=== PATIENT | female | born 1930 | race Hispanic/Latino ===

== ENCOUNTER 2018-06-24 14:37 | Inpatient (IN) | payer MEDICARE, BC ==
[2018-06-24 14:51] VITALS: BMI 22.6
[2018-06-24] MEDS ORDERED: cefTRIAXone 1 gm 1 GM/100 ML BAG IVPB STA (14:52)
--- NOTE | 2018-06-24 14:56 | ED PDOC ---
Arrival/HPI - General Time Seen by Provider: 06/24/18 14:39 Historian: Patient - History of Present Illness Narrative History of Present Illness (Text): 06/24/18 14:52 An 88 year old female presents to the emergency room with a complaint of sudden onset weakness, chills, feeling warm, and inability to walk. Patient states that her symptoms began today at home. She notes that she does not smoke/drink. The patient denies fevers, headache, dizziness, sore throat, cough, chest pain, shortness of breath, dyspnea on exertion, abdominal pain, nausea, vomiting, diarrhea, neck/back pain, urinary/bowel changes or any other complaint. PMD: Dr. Kilgore Time/Duration: Other (Today) Symptom Onset: Sudden Symptom Course: Unchanged Activities at Onset: Rest, Light Context: Home Associated Symptoms (Text): 06/24/18 15:54 Severe generalized weakness and fatigue along with feeling feverish with chills and inability to ambulate beginning today. Past Medical History - Provider Review Nursing Documentation Reviewed: Yes Family/Social History - Physician Review Nursing Documentation Reviewed: Yes Family/Social History: No Known Family HX Smoking Status: Never Smoked Hx Alcohol Use: No Hx Substance Use: No Allergies/Home Meds Allergies/Adverse Reactions: Allergies No Known Allergies Allergy (Verified 06/24/18 14:38) Home Medications: Home Meds Medication Instructions Recorded Confirmed Cholecalciferol [Vitamin D 1000 IU] 50,000 iu PO Q2W 06/24/18 06/24/18 Furosemide [Lasix] 20 mg PO DAILY 06/24/18 06/24/18 Lisinopril [Zestril] 10 mg PO DAILY 06/24/18 06/24/18 Metoprolol Tartrate [Lopressor] 50 mg PO DAILY 06/24/18 06/24/18 Oxybutynin [Oxybutynin Chloride] 5 mg PO DAILY 06/24/18 06/24/18 [id number] CD [Cardizem CD] 180 mg PO DAILY 06/24/18 06/24/18 Review of Systems - Physician Review All systems were reviewed & negative as marked: Yes - Review of Systems Constitutional: Fatigue. absent: Fevers ENT: absent: Sore Throat Respiratory: absent: SOB, Cough Cardiovascular: absent: Chest Pain, MENDOZA Gastrointestinal: absent: Abdominal Pain, Stool Changes, Diarrhea, Nausea, Vomiting Genitourinary Female: absent: Urine Output Changes Musculoskeletal: absent: Back Pain, Neck Pain Neurological: absent: Headache, Dizziness Endocrine: Diaphoresis (Feeling warm and experienced chills) Physical Exam Vital Signs Temp Pulse Resp BP Pulse Ox 06/24/18 15:56 84 20 124/58 L 96 06/24/18 14:37 101.7 F H 93 H 20 154/109 H 97 Temperature: Febrile Blood Pressure: Hypertensive Pulse: Regular Respiratory Rate: Normal Appearance: Positive for: Well-Appearing, Non-Toxic, Comfortable, Uncomfortable Pain Distress: None Mental Status: Positive for: Alert and Oriented X 3 - Systems Exam Head: Present: Atraumatic, Normocephalic Pupils: Present: PERRL Extroacular Muscles: Present: EOMI Conjunctiva: Present: Normal Ears: Present: NORMAL TM, Normal Canal. No: Erythema Mouth: Present: Moist Mucous Membranes Pharnyx: No: ERYTHEMA, EXUDATE, TONSILS ENLARGED Neck: Present: Normal Range of Motion Respiratory/Chest: Present: Clear to Auscultation, Good Air Exchange, Other ( Large area of cellulitis, warm, swollen, erythematous, tender: right breast.). No: Respiratory Distress, Accessory Muscle Use Cardiovascular: Present: Regular Rate and Rhythm, Irregular Rhythm (Irregulary irregular.). No: Murmurs Abdomen: No: Tenderness, Distention, Peritoneal Signs Breast/Axillary: Present: Discoloration, Erythema, Swelling, Symmetrical, Tender to Palpation. No: Fluctuance, Masses, Nipple Discharge Back: Present: Normal Inspection Upper Extremity: Present: Normal Inspection. No: Cyanosis, Edema Lower Extremity: Present: Normal Inspection. No: Edema Neurological: Present: GCS=15, CN II-XII Intact, Speech Normal, Motor Func Grossly Intact Skin: Present: Warm, Dry, Normal Color, Other (Severe cellulitis of the entire right breast with no palpable abscess). No: Rashes Psychiatric: Present: Alert, Oriented x 3, Normal Insight, Normal Concentration Medical Decision Making ED Course and Treatment: 06/24/18 14:59 Impression: An 88 year old female presents to the emergency room for further evaluation after feeling warm, weak and experiencing chills and diaphoresis. Plan: --EKG -- Chest X-ray -- Labs -- Blood/ Urine Culture -- Urinalysis -- Rocephin -- Reassess and disposition Progress Notes: Chest X-ray Dictator : Maynor Gamboa MD Report Date : 06/24/2018 15:15:54 IMPRESSION: No active disease 06/24/18 15:56 EKG shows atrial fibrillation rate approximately 90 with Q waves inferiorly and no acute ST or T-wave changes. 06/24/18 15:58: Case discussed in detail with Dr. Kilgore who accepts patient to his service. - Lab Interpretations Lab Results: 06/24/18 15:00 06/24/18 15:00 Lab Results 06/24/18 15:00: Sodium 139, Chloride 106, Potassium 4.4, Carbon Dioxide 21, Anion Gap 16, BUN 38 H, Creatinine 1.5 H, Est GFR ( Amer) 40, Est GFR ( Non-Af Amer) 33, Random Glucose 113 H, Calcium 8.8, Phosphorus 2.7, Magnesium 2.0, Total Bilirubin 2.1 H, AST 40 H, ALT 40, Alkaline Phosphatase 107, Troponin I < 0.01, Total Protein 6.7, Albumin 3.8, Globulin 2.9, Albumin/ Globulin Ratio 1.3 06/24/18 15:00: pO2 178 H, VBG pH 7.47 H, VBG pCO2 31.0 L, VBG HCO3 22.6, VBG Total CO2 23.6, VBG O2 Sat (Calc) 100.2 H, VBG Base Excess -0.2 L, VBG Potassium 4.5, Sodium 138.0, Chloride 108.0 H, Glucose 116 H, Lactate 2.0, FiO2 21.0, Venous Blood Potassium 4.5 06/24/18 15:00: PT 16.4 H, INR 1.43 H, APTT 29.5 06/24/18 15:00: WBC 11.3 H, RBC 3.54, Hgb 12.5, Hct 35.4 L, MCV 100.0, MCH 35.3 H, MCHC 35.3, RDW 13.2, Plt Count 113 L, MPV 9.9, Gran % 81.4 H, Lymph % (Auto) 7.5 L, [place] % (Auto) 10.6 H, Eos % (Auto) 0.3 L, Baso % (Auto) 0.2, Gran # 9.18 H, Lymph # (Auto) 0.9 L, [place] # (Auto) 1.2 H, Eos # (Auto) 0.0, Baso # (Auto) 0.02 I have reviewed the lab results: Yes - RAD Interpretation Radiology Orders: 06/24/18 14:52 CHEST PORTABLE [RAD] Stat - EKG Interpretation Interpreted by ED Physician: Yes Type: 12 lead EKG - Medication Orders Current Medication Orders: Discontinued Medications Acetaminophen (Tylenol 325mg Tab) 975 mg PO STAT STA Stop: 06/24/18 15:19 Last Admin: 06/24/18 15:43 Dose: 975 mg MAR Pain/Vitals Document 06/24/18 15:43 SRE (Rec: 06/24/18 15:43 SRE [id number]) Pain Reassessment Is This A Pain ReAssessment? Yes Sleep Is patient sleeping during reassessment? No Presence of Pain Presence of Pain Yes Pain Scale Used Pain Scale Used Numeric Ceftriaxone Sodium (Rocephin 1 Gram Ivpb) 1 gm in 100 mls @ 200 mls/hr IVPB STAT STA PRN Reason: Protocol Stop: 06/24/18 15:21 Last Admin: 06/24/18 15:30 Dose: 200 mls/hr eMAR Start Stop Document 06/24/18 15:30 SRE (Rec: 06/24/18 15:43 SRE [id number]) Intravenous Solution Start Date 06/24/18 Start Time 15:30 End Date 06/24/18 End time 16:30 Total Infusion Time 60 Sodium Chloride (Sodium Chloride 0.9%) 500 mls @ 500 mls/hr IV ONCE ONE Stop: 06/24/18 16:45 Last Admin: 06/24/18 15:55 Dose: 500 mls/hr eMAR Start Stop Document 06/24/18 15:55 SRE (Rec: 06/24/18 15:56 SRE [id number]) Intravenous Solution Start Date 06/24/18 Start Time 15:55 End Date 06/24/18 End time 16:30 Total Infusion Time 35 - Scribe Statement The provider has reviewed the documentation as recorded by the Sumiibkapil Bryson Provider Scribe Attestation: All medical record entries made by the Scribe were at my direction and personally dictated by me. I have reviewed the chart and agree that the record accurately reflects my personal performance of the history, physical exam, medical decision making, and the department course for this patient. I have also personally directed, reviewed, and agree with the discharge instructions and disposition. Disposition/Present on Arrival - Present on Arrival Any Indicators Present on Arrival: No History of DVT/PE: No History of Uncontrolled Diabetes: No Urinary Catheter: No History of Decub. Ulcer: No - Disposition Have Diagnosis and Disposition been Completed?: Yes Diagnosis: Cellulitis, Fever, Hypertension, Dehydration, Atrial fibrillation, Altered mental status Disposition: HOSPITALIZED Disposition Time: 15:46 Patient Plan: Admission Patient Problems: Current Active Problems Problem Status Onset Altered mental status Acute Atrial fibrillation Acute Cellulitis Acute Dehydration Acute Fever Acute Hypertension Acute Condition: FAIR
--- NOTE | 2018-06-24 15:17 | RAD ---
Date of service: 06/24/2018 HISTORY: Sepsis Patient COMPARISON: No prior. FINDINGS: LUNGS: No active pulmonary disease. PLEURA: No significant pleural effusion identified, no pneumothorax apparent. CARDIOVASCULAR: Normal. OSSEOUS STRUCTURES: No significant abnormalities. VISUALIZED UPPER ABDOMEN: Normal. OTHER FINDINGS: None. IMPRESSION: No active disease.
[2018-06-24 15:27] LABS: BASO # 0.02 K/mm3 (0.0-2.0); BASO % 0.2 % (0.0-3.0); EOS % 0.3 % (1.5-5.0); GRAN # 9.18 (1.4-6.5); GRAN % 81.4 % (50.0-68.0); HEMOGLOBIN 12.5 g/dL (12.0-16.0); LYMPH # 0.9 (1.2-3.4); LYMPH % 7.5 % (22.0-35.0); MEAN CORPUSCULAR HEMOGLOBIN 35.3 pg (25.0-35.0); MEAN CORPUSCULAR HGB CONC 35.3 g/dl (31.0-37.0); MEAN PLATELET VOLUME 9.9 fl (7.0-11.0); MONO # 1.2 (0.1-0.6); MONO % 10.6 % (1.0-6.0); RBC 3.54 10^6/uL (3.5-6.1); RED CELL DISTRIBUTION WIDTH 13.2 % (11.5-14.5); VENOUS BLOOD GAS BASE EXCESS -0.2 mmol/L (0.0-2.0); VENOUS BLOOD GAS PO2 178 mm/Hg (30-55); VENOUS BLOOD PH 7.47 (7.32-7.43); WHITE BLOOD COUNT 11.3 10^3/ul (4.5-11.0)
[2018-06-24 15:35] LABS: INR 1.43 (0.93-1.08); PARTIAL THROMBOPLASTIN TIME 29.5 Seconds (25.1-36.5); PROTHROMBIN TIME 16.4 SECONDS (9.4-12.5)
[2018-06-24 15:37] LABS: ALB/GLOB RATIO 1.3 (1.1-1.8); ALBUMIN 3.8 g/dL (3.0-4.8); ALT/SGPT 40 U/L (7-56); AST/SGOT 40 U/L (14-36); BLOOD UREA NITROGEN 38 mg/dL (7-21); CALCIUM 8.8 mg/dL (8.4-10.5); GFR AFRICAN-AMERICAN 40; GFR NON-AFRICAN AMERICAN 33
[2018-06-24] MEDS ORDERED: Sodium Chloride 0.9% 500 ML IV ONE (15:46)
[2018-06-24 15:48] LABS: TROPONIN I < 0.01 ng/mL
[2018-06-24 15:50] LABS: PH,URINE 6.5 (4.7-8.0); URINE APPEARANCE CLEAR (CLEAR); URINE BILIRUBIN NEGATIVE (NEGATIVE); URINE BLOOD SMALL (NEGATIVE); URINE COLOR YELLOW (YELLOW); URINE GLUCOSE (UA) NEGATIVE (NEGATIVE); URINE LEUKOCYTE ESTERASE NEGATIVE Leu/uL (NEGATIVE); URINE PROTEIN 30 mg/dL (<30 mg/dL)
[2018-06-24 16:11] LABS: URINE RBC 0 - 2 /hpf (0-2); URINE WBC NEGATIVE /hpf (0-6)
--- NOTE | 2018-06-24 17:27 | CARD ---
APPROVED REPORT Date of service: 06/24/2018 EKG Measurement Heart [id number] <Conclusion> Atrial fibrillation Inferior infarct, age undetermined Abnormal ECG
[2018-06-24] MEDS: Sodium Chloride 0.9% 1,000 ML IV SCH (18:51)
[2018-06-24 19:12] LABS: VENOUS BLOOD GAS BASE EXCESS -1.1 mmol/L (0.0-2.0); VENOUS BLOOD GAS PO2 85 mm/Hg (30-55)
[2018-06-24] MEDS ORDERED: Pneumococcal 23-Valent Vaccine IM ONE (21:03)
[2018-06-24] MEDS: Linezolid 600 mg in D5W 300 ml 600 MG/300 ML BAG IVPB SCH (23:50)
--- NOTE | 2018-06-25 04:21 | HP ---
I am seeing the patient in the emergency room. Patient is admitted with the diagnosis of cellulitis of the right chest wall involving the breast area. HISTORY OF PRESENT ILLNESS: Patient is seen in the emergency room. She presented with fever. She also had general weakness and unstable gait. Patient has had also mild cough and congestion. PAST MEDICAL HISTORY: Patient's past history is significant. She has history of hypertension. Patient has a history of atherosclerotic heart disease, atrial fibrillation. Patient has history of congestive heart failure, osteoarthritis, osteoporosis. She also has history of overactive bladder with frequency of micturition. Patient has history of cancer of the right breast, diagnosed and treated in the past. 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 ALLERGIES: SHE IS NOT ALLERGIC TO ANY MEDICATIONS AT THIS TIME. PHYSICAL EXAMINATION: GENERAL: Patient is examined while the patient is in the emergency room. She is lying flat. She does not seem to be in any acute pain, but on palpation she has pain in the right chest. Patient's color, she is flushed and she seemed to be warm on touch. VITAL SIGNS: Pulse is 84, blood pressure 124/58, respirations are 20, O2 saturation 96% on room air, patient's temperature was 101.7 in the emergency room. HEENT: Patient's head appears to be normal, but she has a scar from the previous surgery. She has had cerebral hemorrhage and she had the finding in the past. NECK: The thyroid is not enlarged. JVP is flat. Carotid pulses are present. HEART: Normal sinus rhythm, sinus tachycardia. No murmurs. No rubs. ABDOMEN: Soft. Liver and spleen not palpable. No masses. CENTRAL NERVOUS SYSTEM: Patient is conscious, moves all four limbs and no focal neurological deficits noted at this time. LUNGS: Clear. Trachea is central. Breath sounds are vesicular bilaterally and they are diminished bilaterally. EXTREMITIES: Patient's examination of the legs appears to be normal as before, and no acute changes are noted in the leg. SKIN: Patient's chest examination on the skin shows evidence of cellulitis or erysipelas-like reaction of the chest wall, which is red and not clearly marginated. The patient possibly has a Streptococcal infection in the skin area. LABORATORY DATA: The patient's blood cultures were done in the emergency room. ASSESSMENT AND PLAN: She was put on Rocephin intravenously and Tylenol given every four hours p.r.n. Patient's medications consist of, patient is on Cardizem 180 mg daily. Patient is on metoprolol 50 mg daily, lisinopril 10 mg daily, Lasix 20 mg daily. Patient is on oxybutynin for overactive bladder, 5 mg once a day. Patient is on vitamin D, and 2 g sodium heart-healthy diet. Patient's clinical condition is acute. Overall prognosis is guarded. We will treat the patient with antibiotics, have a consultation with Infectious Disease service, and we will closely evaluate her right breast area because of the patient's past history of the cancer of the breast. Might need to do mammogram, but the patient is tender at this time, and we will consider doing the CAT scan of the chest to evaluate the breast area and the chest. Patient is in the emergency room, will be placed on regular medical bed upstairs in the floor. César Lemon MD
[2018-06-25] MEDS: Sodium Chloride 0.9% 1,000 ML IV SCH ×2 (07:09→20:25)
[2018-06-25 07:27] LABS: BASO # 0.02 K/mm3 (0.0-2.0); BASO % 0.2 % (0.0-3.0); EOS # 0.1 (0.0-0.7); EOS % 1.2 % (1.5-5.0); GRAN # 6.18 (1.4-6.5); GRAN % 76.9 % (50.0-68.0); LYMPH # 0.8 (1.2-3.4); LYMPH % 10.4 % (22.0-35.0); MEAN CELL VOLUME 100.3 fl (80.0-105.0); MEAN CORPUSCULAR HEMOGLOBIN 34.7 pg (25.0-35.0); MEAN CORPUSCULAR HGB CONC 34.6 g/dl (31.0-37.0); MEAN PLATELET VOLUME 9.7 fl (7.0-11.0); MONO # 0.9 (0.1-0.6); MONO % 11.3 % (1.0-6.0); RBC 3.46 10^6/uL (3.5-6.1); RED CELL DISTRIBUTION WIDTH 13.4 % (11.5-14.5); WHITE BLOOD COUNT 8.1 10^3/ul (4.5-11.0)
[2018-06-25 07:41] LABS: ALB/GLOB RATIO 1.1 (1.1-1.8); ALBUMIN 3.2 g/dL (3.0-4.8); CALCIUM 8.2 mg/dL (8.4-10.5)
[2018-06-25] MEDS: diltiaZEM 180 mg/24 Hours CD Cap PO SCH (10:15)
[2018-06-25] MEDS: Linezolid 600 mg in D5W 300 ml 600 MG/300 ML BAG IVPB SCH ×2 (10:16→21:11)
--- NOTE | 2018-06-25 15:15 | PN ---
DATE: 06/25/2018 LOCATION: The patient is in [facility] in room 577, bed 1. SUBJECTIVE: She was admitted with cellulitis of the right chest wall encompassing the area of the breast. The patient has pain extending into the right axilla. The patient's past history is significant, she has had cerebral hemorrhage in the past. Anticoagulation is avoided in this patient because the patient has previous hemorrhage. She has diagnosed atrial fibrillation with moderate ventricular response. The patient is seen this morning. She seemed to be relatively comfortable. PHYSICAL EXAMINATION: VITAL SIGNS: She has temperature 98.1, the pulse is 99, blood pressure 146/78, O2 sat is 97% on room air. HEENT: The patient's head shows evidence of previous craniotomy for drainage of blood from cerebral hemorrhage in the past. NECK: The thyroid is not enlarged. The lymph nodes are not palpable. CHEST: The patient's right breast area shows severe redness and irritation, and axilla shows some doughy mass, questionable lymph nodes. The patient has previous history on the right breast for concern of the breast. The patient's left breast appears to be normal breast. LUNGS: Clear. Trachea central. Breath sounds are vesicular. No adventitious sounds. ABDOMEN: Soft. Liver and spleen not palpable. ORACLE DRM CONSULTANT: The patient is conscious, rational, and oriented. No focal deficits at this time. We will get the patient out of bed. Continue all her medications. The list of medications consists of Cardizem 90 mg daily, Ditropan 5 mg once a day, Lasix 20 mg daily, metoprolol 50 mg daily, and lisinopril 10 mg daily. The patient is on Zyvox 600 mg every 12 hours, LABORATORY DATA: The patient's lab work shows that the patient's white count was 11,000 yesterday, today it is 8000. The patient's differential shows the lymphocyte count of 10% and granulocyte count of 77%. The patient's chemistry, the blood sugar is 113, it is 83 this morning. Sodium and potassium, BUN and creatinine are within normal range. The patient's EKG shows atrial fibrillation. The patient will continue with the antibiotics as ordered by the Infectious Disease and we will be planning to check a CT scan to look into the area of the axilla and the inner part of her chest. The patient's overall prognosis is guarded, condition is stable. César Lemon MD [facility] # [id number]
--- NOTE | 2018-06-25 17:17 | CON ---
DATE: 06/25/2018 Patient is in bed, in no acute distress. CHIEF COMPLAINT: Right breast infection x1 day duration. HISTORY OF PRESENT ILLNESS: Patient is an 88-year-old female with coronary artery disease, atrial fibrillation, congestive heart failure, osteoarthritis, osteoporosis, history of right breast cancer, history of surgery in the past who is admitted with erythema of the right breast and no fevers. She stated that, however, she did have fevers on admission and no chill or cough. No chest pain. No abdominal pain, diarrhea, or constipation. No dysuria or frequency. REVIEW OF SYSTEMS: Performed. A 12-point review of system is performed. PAST MEDICAL HISTORY: Significant for coronary artery disease, atrial fibrillation, overactive urinary bladder, congestive heart failure, osteoarthritis, osteoporosis, right breast cancer. PAST SURGICAL HISTORY: Noncontributory. ALLERGIES: PATIENT HAS NO KNOWN ALLERGIES. MEDICATIONS AT HOME: Reveals the patient is on oxybutynin, metoprolol. PHYSICAL EXAMINATION: VITAL SIGNS: Patient is in bed with a temperature of 98, T-max is 101.7, heart rate of 99, respiratory rate of 20, blood pressure is 146/70. HEENT: Unremarkable. NECK: Supple. LUNGS: Have decreased breath sounds. HEART: Normal S1 and S2. ABDOMEN: Soft and nontender. LABORATORY EXAMINATION: Reveals the patient's white count is 11,300, hemoglobin of 12, platelets of 113 and chemistries are noted. Urinalysis is reviewed. Examination of her right breast with the nursing staff is performed, which revealed erythema of the right breast. There is some minimal edema. No break in the skin. No discharge. There is a rash. The patient had a chest x-ray, which was negative. History and physical examination is written by Dr. Lemon and reviewed. ER chart is reviewed. ASSESSMENT AND PLAN: This is an 88-year-old female with atrial fibrillation, overactive urinary bladder, congestive heart failure, osteoarthritis, osteoporosis, right breast cancer with sepsis with a fever of 101.7 and tachycardia with sepsis with right breast cellulitis. We will treat the patient with Zyvox and pending blood cultures and urine cultures and we will follow with you. . Alexis Smith MD
[2018-06-26] MEDS: Sodium Chloride 0.9% 1,000 ML IV SCH (06:49)
[2018-06-26] MEDS: diltiaZEM 180 mg/24 Hours CD Cap PO SCH (10:19)
--- NOTE | 2018-06-26 11:12 | PN ---
DATE: 06/26/2018 SUBJECTIVE: The patient is seen early this morning. No fevers. No chills. No nausea. PHYSICAL EXAMINATION: VITAL SIGNS: Temperature is 98, blood pressure is 140/70, respiratory rate of 20, heart rate of 54. HEENT: Examination of HEENT is unremarkable. NECK: Supple. LUNGS: Have decreased breath sounds. HEART: Normal S1, S2. ABDOMEN: Soft, nontender. BREASTS: Examination of the breast is greatly improved. Less erythema. LABORATORY DATA: Microbiology reveals the blood cultures are no growth. Urine cultures are no growth. The patient is currently on linezolid IV. Able to tolerate p.o. ASSESSMENT AND PLAN: An 88-year-old female with atrial fibrillation, overactive urinary bladder, congestive heart failure, osteoarthritis, osteoporosis, history of right breast cancer. Admitted with sepsis. The patient had a fever of 101.7, tachycardia on admission with sepsis with a right breast cellulitis. We will switch the Zyvox to p.o. Appears to be improving. Short course based on response. Alexis Smith MD
[2018-06-26] MEDS ORDERED: Sodium Chloride 0.9% 1,000 ML IV SCH (11:23)
--- NOTE | 2018-06-26 11:23 | CP.PCM.PN ---
Subjective - Date & Time of Evaluation Date of Evaluation: 06/26/18 Time of Evaluation: 09:05 - Subjective Subjective: Patient is seen this morning. She is feeling better. Objective - Vital Signs/Intake and Output Vital Signs (last 24 hours): Temp Pulse Resp BP Pulse Ox 97.9 F 89 20 139/72 97 06/26/18 06:00 06/26/18 10:19 06/26/18 06:00 06/26/18 10:19 06/26/18 06:00 Intake and Output: 06/26/18 06/26/18 06:59 18:59 Intake Total 620 Balance 620 - Medications Medications: Current Medications Diltiazem HCl (Cardizem Cd) 180 mg PO DAILY [facility] Last Admin: 06/26/18 10:19 Dose: 180 mg Furosemide (Lasix) 20 mg PO DAILY [facility] Last Admin: 06/26/18 10:19 Dose: 20 mg Sodium Chloride (Sodium Chloride 0.9%) 1,000 mls @ 80 mls/hr IV .[id number] [facility] Last Admin: 06/26/18 06:49 Dose: Not Given Linezolid (Zyvox) 600 mg PO Q12 [facility] PRN Reason: Protocol Last Admin: 06/26/18 10:16 Dose: 600 mg Lisinopril (Zestril) 10 mg PO DAILY [facility] Last Admin: 06/26/18 10:19 Dose: 10 mg Metoprolol Tartrate (Lopressor) 50 mg PO DAILY [facility] Last Admin: 06/26/18 10:18 Dose: 50 mg Oxybutynin Chloride (Ditropan Tab) 5 mg PO DAILY [facility] Last Admin: 06/26/18 10:10 Dose: 5 mg - Labs Labs: 06/25/18 06:30 06/25/18 06:30 PT 16.4 SECONDS (9.4-12.5) H 06/24/18 15:00 INR 1.43 (0.93-1.08) H 06/24/18 15:00 APTT 29.5 Seconds (25.1-36.5) 06/24/18 15:00 - Constitutional Appears: No Acute Distress - Head Exam Head Exam: ATRAUMATIC, NORMOCEPHALIC - Respiratory Exam Respiratory Exam: Clear to Ausculation Bilateral, NORMAL BREATHING PATTERN - Cardiovascular Exam Cardiovascular Exam: Irregular Rhythm, +S1, +S2 - GI/Abdominal Exam GI & Abdominal Exam: Soft, Normal Bowel Sounds. absent: Tenderness - Neurological Exam Neurological Exam: Alert, Awake, Oriented x3 Assessment and Plan - Assessment and Plan (Free Text) Assessment: Sepsis secondary to right breast cellulitis Chronic atrial fibrillation Hypertension Urinary Incontinence Plan: continue Zyvox as per infectious disease for cellulitis. Will order CT chest. BUN and creatinine trending downward. Will decreased IV fluids to 60ml/hour. continue Zestril, Metoprolol for hypertension continue Cardizem for atrial fibrillation. Patient is not on anticoagulation due to history of cerebral hemorrhage while on coumadin. will order PT evaluation
--- NOTE | 2018-06-26 13:07 | CT ---
Date of service: 06/26/2018 PROCEDURE: CT Chest without contrast HISTORY: right chest skin infection, r/o malignancy Relevant surgical history: 2014 right lumpectomy COMPARISON: None. TECHNIQUE: Contiguous axial images were obtained through the chest without intravenous contrast enhancement. Sagittal and coronal reconstructions were performed. Radiation dose (DLP): 306.42 MGy-cm. This CT exam was performed using one or more of the following dose reduction techniques: Automated exposure control, adjustment of the mA and/or kV according to patient size, and/or use of iterative reconstruction technique. FINDINGS: LUNGS: Clear lungs. Visualized airway clear. MEDIASTINUM: Unremarkable thoracic aorta. No aneurysm. Cardiomegaly. No evidence of acute, significant cardiovascular disease. Main pulmonary artery unremarkable. No vascular congestion. No lymphadenopathy. PLEURA: Trace bilateral pleural effusions. BONES: No fracture. No destructive lesion. Degenerative changes mid thoracic spine. UPPER ABDOMEN: Grossly unremarkable. OTHER FINDINGS: Postoperative changes right breast including surgical clips. There is edema, skin thickening right breast and adjacent chest wall. Is a history of prior radiation therapy? Right axillary adenopathy the preponderance of lymph nodes Less than 1.5 cm. IMPRESSION: Skin thickening centered about the right breasts but extensive including lateral chest wall extending to the level of the diaphragms. Additional inflammatory changes right axilla. No drainable collections. Trace bilateral pleural effusions.
[2018-06-27 07:29] LABS: BASO # 0.02 K/mm3 (0.0-2.0); BASO % 0.3 % (0.0-3.0); EOS # 0.3 (0.0-0.7); EOS % 5.1 % (1.5-5.0); GRAN # 4.07 (1.4-6.5); GRAN % 68.8 % (50.0-68.0); HEMOGLOBIN 12.5 g/dL (12.0-16.0); LYMPH # 0.9 (1.2-3.4); LYMPH % 15.6 % (22.0-35.0); MEAN CELL VOLUME 98.1 fl (80.0-105.0); MEAN CORPUSCULAR HEMOGLOBIN 34.2 pg (25.0-35.0); MEAN CORPUSCULAR HGB CONC 34.9 g/dl (31.0-37.0); MEAN PLATELET VOLUME 9.4 fl (7.0-11.0); MONO # 0.6 (0.1-0.6); MONO % 10.2 % (1.0-6.0); RBC 3.65 10^6/uL (3.5-6.1); RED CELL DISTRIBUTION WIDTH 13.4 % (11.5-14.5); WHITE BLOOD COUNT 5.9 10^3/ul (4.5-11.0)
[2018-06-27 07:48] LABS: ALB/GLOB RATIO 1.1 (1.1-1.8); ALBUMIN 3.2 g/dL (3.0-4.8); CALCIUM 8.3 mg/dL (8.4-10.5)
[2018-06-27 08:03] VITALS: PULSE 86; RESP 20; TEMP 97.9; O2SAT 98
--- NOTE | 2018-06-27 09:04 | PN ---
DATE: 06/27/2018 SUBJECTIVE: The patient was admitted to [facility] in [place] with diagnosis of cellulitis of the chest wall involving the right breast area. The patient has past history of hypertension, atherosclerotic heart disease, cerebrovascular disease, cerebral hemorrhage. The patient has overactive bladder. The patient has been treated with antibiotics for a few days now. PHYSICAL EXAMINATION: VITAL SIGNS: The patient's blood pressure is 130/60, the patient's respirations of 20, O2 sat of 98%, the patient's pulse rate is 86, temperature 97.9. HEART: Atrial fibrillation with moderate ventricular response. LUNGS: Clear. ABDOMEN: Soft. Liver and spleen not palpable. CROWN BLOCKER: No significant focal deficits. ASSESSMENT AND PLAN: The patient had a CAT scan of the chest shows evidence of lymphedema involving the right breast area. The patient has some small multiple lymph nodes in the axillary area. The density of the inflammation is decreased. The patient still has marked erythema in the area of the breast. The patient is on oral antibiotic, Zyvox 600 mg b.i.d. The patient also gets medications for her blood pressure. She is on Cardizem 180 mg daily that also covers atrial fibrillation. The patient is on metoprolol 50 mg daily, Lasix 20 mg daily, lisinopril 10 mg daily. The patient is on a 2 g sodium heart-healthy diet. We will discuss it with Social Service and make discharge plan for the patient. If the patient can be evaluated for subacute care, we can continue the antibiotics orally and follow the patient up in her subacute care facility in [place]. Overall prognosis is guarded. Overall diagnosis is the patient's clinical condition is improved much. César Lemon MD
[2018-06-27] MEDS: diltiaZEM 180 mg/24 Hours CD Cap PO SCH (09:48)
[2018-06-27 10:05] VITALS: BP 130/62
== END 2018-06-27 14:14 | DRG 872 ==
LOC: ED 14:37 → ERH 15:42 → 5RSO 20:27
PROVIDERS: ADMIT Internal Medicine; ATTEND Internal Medicine
DX: A41.9 Sepsis, unspecified organism (principal); L03.313 Cellulitis of chest wall; E86.0 Dehydration; I11.0 Hypertensive heart disease with heart failure; I25.10 Atherosclerotic heart disease of native coronary artery without angina pectoris; I48.2 Chronic atrial fibrillation; I50.9 Heart failure, unspecified; I67.9 Cerebrovascular disease, unspecified; I89.0 Lymphedema, not elsewhere classified; M19.90 Unspecified osteoarthritis, unspecified site; M81.0 Age-related osteoporosis without current pathological fracture; N32.81 Overactive bladder; N61.0 Mastitis without abscess; R32 Unspecified urinary incontinence; Z79.899 Other long term (current) drug therapy; Z85.3 Personal history of malignant neoplasm of breast; Z85.820 Personal history of malignant melanoma of skin

== ENCOUNTER 2018-06-27 14:22 | Inpatient (IN) | payer OTHER, BC ==
--- NOTE | 2018-06-27 17:12 | CP.PCM.CON ---
History of Present Illness - History of Present Illness History of Present Illness: 88 year old female with PMH of atrial fibrillation, overactive bladder, osteoarthritis, chronic CHF, osteoporosis, history of right breast cancer was initially admitted in [facility] [place] [facility] for right breast cellulitis. She has been improving with antibiotics and is now transferred to [facility] for continued medical therapy and physical rehab. Infectious diseases consult is requested to continue her antibiotic therapy. She denies fever or chills, no nausea or vomiting, no chest pain, no SOB, no headache or dizziness, no abdominal pain, no diarrhea, no dysuria. Her right breast feels better as per the patient. Review of Systems - Review of Systems All systems: reviewed and no additional remarkable complaints except (as per HPI ) Past Patient History - Past Social History Smoking Status: Never Smoked - CARDIAC Hx Congestive Heart Failure: Yes Hx Hypertension: Yes - PULMONARY Hx Respiratory Disorders: No - NEUROLOGICAL Hx Neurological Disorder: No - HEENT Hx HEENT Problems: No - RENAL Hx Chronic Kidney Disease: No - ENDOCRINE/METABOLIC Hx Endocrine Disorders: No - HEMATOLOGICAL/ONCOLOGICAL Hx Cancer: Yes (r breast) Other/Comment: pt denies having radiation to right breast and admits to radiation to left breast for "prevention" - INTEGUMENTARY Hx Dermatological Problems: Yes Other/Comment: cellulitis right breast skin reddened, multiple moles ad nodues to abd chest and back, multiple skin discolortions to b/l arms generalized dry skin, face flushed - MUSCULOSKELETAL/RHEUMATOLOGICAL Hx Arthritis: Yes - GASTROINTESTINAL Hx Gastrointestinal Disorders: No - GENITOURINARY/GYNECOLOGICAL Hx Incontinence: Yes - PSYCHIATRIC Hx Substance Use: No - SURGICAL HISTORY Hx Surgeries: Yes Other/Comment: r breast lumpectomy Meds Allergies/Adverse Reactions: Allergies Allergy/AdvReac Type Severity Reaction Status Date / Time No Known Allergies Allergy Verified 06/24/18 14:38 - Medications Medications: Current Medications Diltiazem HCl (Cardizem Cd) 180 mg PO DAILY ARMANI PRN Reason: Protocol Furosemide (Lasix) 20 mg PO DAILY ARMANI PRN Reason: Protocol Linezolid (Zyvox) 600 mg PO BID ARMANI PRN Reason: Protocol Lisinopril (Zestril) 10 mg PO DAILY ARMANI PRN Reason: Protocol Metoprolol Tartrate (Lopressor) 50 mg PO 0800 ARMANI PRN Reason: Protocol Oxybutynin Chloride (Ditropan Tab) 5 mg PO DAILY ARMANI PRN Reason: Protocol Physical Exam - Constitutional Appears: Chronically Ill - Head Exam Head Exam: NORMAL INSPECTION - ENT Exam ENT Exam: Mucous Membranes Moist - Neck Exam Neck exam: Negative for: Meningismus - Respiratory Exam Respiratory Exam: Decreased Breath Sounds - Cardiovascular Exam Cardiovascular Exam: +S1, +S2 - GI/Abdominal Exam GI & Abdominal Exam: Soft. absent: Tenderness - Skin Additional comments: right breast with decreased swelling and erythema Results - Vital Signs Recent Vital Signs: Last Vital Signs Temp 98 F 06/27/18 16:00 Pulse 55 L 06/27/18 16:00 Resp 18 06/27/18 16:00 BP 131/55 L 06/27/18 16:00 Pulse Ox 96 06/27/18 16:00 Assessment & Plan - Assessment and Plan (Free Text) Plan: Assessment Right breast cellulitis atrial fibrillation overactive bladder osteoarthritis chronic CHF osteoporosis history of right breast cancer Plan continue Zyvox day 3 to complete 7-10 days of therapy will monitor clinically
[2018-06-27 18:47] VITALS: BMI 24.5
[2018-06-27] MEDS ORDERED: Pneumococcal 23-Valent Vaccine IM ONE (18:48)
--- NOTE | 2018-06-28 07:21 | CP.PCM.HP ---
History of Present Illness - History of Present Illness History of Present Illness: 88 year old female with history of chronic atrial fibrillation, hypertension, overactive bladder, right breast cancer was admitted to the [facility] for sepsis secondary to cellulitis of the right breast. Patient is now admitted to the Transitional Care Unit for continuation of antibiotic therapy and physical therapy for deconditioning and unsteady gait. She has no new complaints this morning. Present on Admission - Present on Admission Any Indicators Present on Admission: No History of DVT/PE: No History of Uncontrolled Diabetes: No Urinary Catheter: No Decubitus Ulcer Present: No Review of Systems - Constitutional Constitutional: absent: Chills, Fever, Headache - Cardiovascular Cardiovascular: absent: Chest Pain, Diaphoresis, Dyspnea - Respiratory Respiratory: absent: Cough, Dyspnea, Wheezing - Gastrointestinal Gastrointestinal: absent: Abdominal Pain, Constipation, Diarrhea, Nausea, Vomiting Past Patient History - Past Social History Smoking Status: Never Smoked - CARDIAC Hx Congestive Heart Failure: Yes Hx Hypertension: Yes - PULMONARY Hx Respiratory Disorders: No - NEUROLOGICAL Hx Neurological Disorder: No - HEENT Hx HEENT Problems: No - RENAL Hx Chronic Kidney Disease: No - ENDOCRINE/METABOLIC Hx Endocrine Disorders: No - HEMATOLOGICAL/ONCOLOGICAL Hx Cancer: Yes (r breast) Other/Comment: pt denies having radiation to right breast and admits to radiation to left breast for "prevention" - INTEGUMENTARY Hx Dermatological Problems: Yes Other/Comment: cellulitis right breast skin reddened, multiple moles ad nodues to abd chest and back, multiple skin discolortions to b/l arms generalized dry skin, face flushed - MUSCULOSKELETAL/RHEUMATOLOGICAL Hx Falls: No - GASTROINTESTINAL Hx Gastrointestinal Disorders: No - GENITOURINARY/GYNECOLOGICAL Hx Reproductive Disorders: (r brreast cellulitis hx r lumpectomy) - PSYCHIATRIC Hx Substance Use: No - SURGICAL HISTORY Hx Surgeries: Yes Other/Comment: r breast lumpectomy Meds Allergies/Adverse Reactions: Allergies Allergy/AdvReac Type Severity Reaction Status Date / Time No Known Allergies Allergy Verified 06/24/18 14:38 Physical Exam - Constitutional Appears: No Acute Distress - Head Exam Head Exam: ATRAUMATIC, NORMOCEPHALIC - Respiratory Exam Respiratory Exam: Clear to Auscultation Bilateral, NORMAL BREATHING PATTERN - Cardiovascular Exam Cardiovascular Exam: Irregular Rhythm, +S1, +S2 - GI/Abdominal Exam GI & Abdominal Exam: Normal Bowel Sounds, Soft. absent: Tenderness - Neurological Exam Neurological exam: Alert, CN II-XII Intact, Oriented x3 - Skin Additional comments: + erythema right breast Results - Vital Signs Recent Vital Signs: Last Vital Signs Temp 98 F 06/27/18 18:38 Pulse 55 L 06/27/18 18:38 Resp 18 06/27/18 18:38 BP 131/75 06/27/18 18:38 Pulse Ox 96 06/27/18 16:00 Assessment & Plan - Assessment and Plan (Free Text) Assessment: Right breast cellulitis Deconditioning HTN Chronic Atrial Fibrillation Overactive bladder History of right breast cancer Plan: Patient is seen this morning. Erythema is present over the right breast and axilla, but improving. continue Zyvox as per infectious disease. Patient will participate in physical therapy while she is in the transitional care unit. continue Cardizem for atrial fibrillation. Patient is off anticoagulation secondary to history of cerebral hemorrhage while on coumadin. continue Metoprolol and Zestril for hypertension continue Ditropan for overactive bladder
[2018-06-28] MEDS: diltiaZEM 180 mg/24 Hours CD Cap PO SCH (10:28)
--- NOTE | 2018-06-28 14:49 | PN ---
Copied To: Alexis Smith MD Attending MD: Alexis Smith MD. DATE: 06/28/2018 SUBJECTIVE: The patient is in bed and seen earlier today in room 303. No fevers and no chills. PHYSICAL EXAMINATION: VITAL SIGNS: Temperature is 97, blood pressure is 120/80, respiratory rate of 16. HEENT: Examination of HEENT is unremarkable. NECK: Supple. LUNGS: Have decreased breath sounds. HEART: Normal S1, S2. ABDOMEN: Soft, nontender. LABORATORY DATA: Laboratory examination reveals the patient's labs are reviewed. Review of orders reveals the patient to be on p.o. Zyvox. Microbiology is noted. ASSESSMENT AND PLAN: An 88-year-old female seen in room 303 this morning with atrial fibrillation, overactive bladder, osteoarthritis, chronic congestive heart failure, osteoporosis, history of right breast cancer and admitted with right breast cellulitis, improving and atrial fibrillation and currently on day #4 of Zyvox, would complete a short course of therapy. Alexis Smith MD
--- NOTE | 2018-06-29 07:55 | CP.PCM.PN ---
Subjective - Date & Time of Evaluation Date of Evaluation: 06/29/18 Time of Evaluation: 07:35 - Subjective Subjective: Patient is doing better. Objective - Vital Signs/Intake and Output Vital Signs (last 24 hours): Temp Pulse Resp BP Pulse Ox 97.4 F L 87 20 132/75 98 06/28/18 16:00 06/28/18 16:03 06/28/18 16:00 06/28/18 16:00 06/28/18 16:03 - Medications Medications: Current Medications Diltiazem HCl (Cardizem Cd) 180 mg PO DAILY ARMANI PRN Reason: Protocol Last Admin: 06/28/18 10:28 Dose: 180 mg Furosemide (Lasix) 20 mg PO DAILY ARMANI PRN Reason: Protocol Last Admin: 06/28/18 10:29 Dose: 20 mg Linezolid (Zyvox) 600 mg PO BID ARMANI PRN Reason: Protocol Last Admin: 06/28/18 17:19 Dose: 600 mg Lisinopril (Zestril) 10 mg PO DAILY ARMANI PRN Reason: Protocol Last Admin: 06/28/18 10:29 Dose: 10 mg Metoprolol Tartrate (Lopressor) 50 mg PO 0800 ARMANI PRN Reason: Protocol Last Admin: 06/28/18 07:52 Dose: 50 mg Oxybutynin Chloride (Ditropan Tab) 5 mg PO DAILY ARMANI PRN Reason: Protocol Last Admin: 06/28/18 10:29 Dose: 5 mg - Constitutional Appears: No Acute Distress - Head Exam Head Exam: ATRAUMATIC, NORMOCEPHALIC - Respiratory Exam Respiratory Exam: Clear to Ausculation Bilateral, NORMAL BREATHING PATTERN - Cardiovascular Exam Cardiovascular Exam: +S1, +S2 - GI/Abdominal Exam GI & Abdominal Exam: Soft, Normal Bowel Sounds. absent: Tenderness - Neurological Exam Neurological Exam: Alert, Awake, Oriented x3 Assessment and Plan - Assessment and Plan (Free Text) Assessment: Right breast cellulitis HTN Chronic atrial fibrillation history of breast cancer Plan: Patient is on Zyvox as per infectious disease for cellulitis of the right breast. continue physical therapy continue Cardizem for atrial fibrillation continue Metoprolol and Zestril for hypertension continue Oxybutynin for overactive bladder
--- NOTE | 2018-06-29 09:26 | PN ---
Copied To: Alexis Smith MD Attending MD: Alexis Smith MD DATE: 06/29/2018 SUBJECTIVE: The patient is in bed in no acute distress. Seen earlier today in room 303. PHYSICAL EXAMINATION VITAL SIGNS: Temperature of 97, blood pressure is 120/60, respiratory rate of 20, heart rate of 61. HEENT: Examination of HEENT is unremarkable. NECK: Supple. LUNGS: Have decreased breath sounds. HEART: Normal S1, S2. ABDOMEN: Soft, nontender. LABORATORY DATA: Examination of breasts reveals the right breast is still clear, erythema is resolved. ASSESSMENT AND PLAN: This is an 88-year-old female, who was seen in room 303 with atrial fibrillation, overactive bladder, osteoarthritis, chronic congestive heart failure, osteoporosis, history of right breast cancer. Admitted with a right breast cellulitis, which is now resolved. Today is day #5 with complete discontinue the Zyvox after today's last dose and the patient's breast is almost completely resolved. Alexis Smith MD
[2018-06-29] MEDS: diltiaZEM 180 mg/24 Hours CD Cap PO SCH (10:21)
--- NOTE | 2018-06-30 09:35 | PN ---
Copied To: Alexis Smith MD Attending MD: Alexis Smith MD DATE: 06/30/2018 SUBJECTIVE: The patient is in bed, in no acute distress, nontoxic. PHYSICAL EXAMINATION: VITAL SIGNS: Temperature is 97, blood pressure is 108/50, respiratory rate of 18. HEENT: Examination of HEENT is unremarkable. NECK: Supple. LUNGS: Have decreased breath sounds. HEART: Normal S1, S2. ABDOMEN: Soft, nontender. BREASTS: Examination of breast is completely resolved. LABORATORY DATA: Laboratory examination is reviewed. ASSESSMENT AND PLAN: A 88-year-old female who was seen early this morning with a history of atrial fibrillation, overactive urinary bladder, osteoarthritis, chronic congestive heart failure, osteoporosis, history of right breast cancer. Admitted with right breast cellulitis, today is day #6. We will discontinue the Zyvox. No further antibiotics needed. The patient has had adequate antibiotic therapy. No further antibiotics. We will discontinue the Zyvox and follow along with you. The patient is at risk for developing nosocomial infections. Alexis Smith MD
[2018-06-30] MEDS: diltiaZEM 180 mg/24 Hours CD Cap PO SCH (10:21)
--- NOTE | 2018-06-30 12:44 | PN ---
Copied To: César Lemon MD Attending MD: César Lemon MD DATE: 06/30/2018 SUBJECTIVE: The patient is in Transitional Care Unit, room 303, bed 1. The patient was admitted with cellulitis of the chest wall, right side. The patient came with febrile illness, severe pain and the patient was weak and off balance. The patient has been treated with antibiotics, Zyvox 600 mg b.i.d. At this time, the patient gets the medicine orally, but she has been also provided with local treatment. PHYSICAL EXAMINATION: VITAL SIGNS: This morning, the pulse is 92, blood pressure 135/72, respirations are 18, O2 saturation is 98% on room air. LUNGS: Clear. HEART: Normal sinus rhythm. ABDOMEN: Soft. There is some firmness to the abdomen. No localized masses are felt. GLYCERIN SUPERVISOR: She is conscious and oriented, answers all questions, she is able to walk with help. She is getting physical therapy too at this time because of general weakness. LABORATORY DATA: The patient's blood work done in the hospital recently is not posted. MEDICATIONS: The patient's medications consists of Cardizem 90 mg daily, the patient is on Lasix 20 mg daily, metoprolol 50 mg daily, lisinopril 10 mg daily and Zyvox 600 mg b.i.d. The patient is on a heart-healthy diet. ASSESSMENT AND PLAN: In summary, the patient has significant past history of hypertension, atherosclerotic heart disease, cerebrovascular disease, cerebral hemorrhage, atrial fibrillation and patient cannot be treated for atrial fibrillation because she has had previous cerebral hemorrhage, anticoagulation is contraindicated in the case. We will continue current management and follow up. César Lemon MD MTDAide
[2018-07-01] MEDS: diltiaZEM 180 mg/24 Hours CD Cap PO SCH (10:06)
--- NOTE | 2018-07-01 10:14 | CP.PCM.PN ---
Subjective - Date & Time of Evaluation Date of Evaluation: 07/01/18 Time of Evaluation: 08:00 - Subjective Subjective: Patient is seen this morning. She is doing well. She says she is walking with the walker. Objective - Vital Signs/Intake and Output Vital Signs (last 24 hours): Temp Pulse Resp BP Pulse Ox 97.6 F 79 18 128/74 98 06/30/18 16:00 07/01/18 10:07 06/30/18 16:00 07/01/18 10:08 06/30/18 16:20 - Medications Medications: Current Medications Diltiazem HCl (Cardizem Cd) 180 mg PO DAILY ARMANI PRN Reason: Protocol Last Admin: 07/01/18 10:06 Dose: 180 mg Furosemide (Lasix) 20 mg PO DAILY ARMANI PRN Reason: Protocol Last Admin: 07/01/18 10:08 Dose: 20 mg Lisinopril (Zestril) 10 mg PO DAILY ARMANI PRN Reason: Protocol Last Admin: 07/01/18 10:07 Dose: 10 mg Metoprolol Tartrate (Lopressor) 50 mg PO 0800 ARMANI PRN Reason: Protocol Last Admin: 07/01/18 08:29 Dose: 50 mg Oxybutynin Chloride (Ditropan Tab) 5 mg PO DAILY ARMANI PRN Reason: Protocol Last Admin: 07/01/18 10:07 Dose: 5 mg - Constitutional Appears: No Acute Distress - Head Exam Head Exam: ATRAUMATIC, NORMOCEPHALIC - Respiratory Exam Respiratory Exam: Clear to Ausculation Bilateral, NORMAL BREATHING PATTERN - Cardiovascular Exam Cardiovascular Exam: Irregular Rhythm, +S1, +S2 - GI/Abdominal Exam GI & Abdominal Exam: Soft, Normal Bowel Sounds. absent: Tenderness - Neurological Exam Neurological Exam: Alert, Awake, Oriented x3 Assessment and Plan - Assessment and Plan (Free Text) Assessment: Right breast cellulitis HTN chronic atrial fibrillation Overactive bladder Plan: Patient is seen this morning. She is doing well in therapy. She has completed course of antibiotics for cellulitis of the right breast, which is now resolved. continue PT and plan for possible discharge tomorrow.
--- NOTE | 2018-07-01 14:07 | CP.PCM.PN ---
Subjective - Date & Time of Evaluation Date of Evaluation: 07/01/18 Time of Evaluation: 11:50 - Subjective Subjective: Comfortable, no fevers, not in distress. Objective - Vital Signs/Intake and Output Vital Signs (last 24 hours): Temp Pulse Resp BP Pulse Ox 97.6 F 79 18 128/74 98 06/30/18 16:00 07/01/18 10:07 06/30/18 16:00 07/01/18 10:08 06/30/18 16:20 - Medications Medications: Current Medications Diltiazem HCl (Cardizem Cd) 180 mg PO DAILY ARMANI PRN Reason: Protocol Last Admin: 07/01/18 10:06 Dose: 180 mg Furosemide (Lasix) 20 mg PO DAILY ARMANI PRN Reason: Protocol Last Admin: 07/01/18 10:08 Dose: 20 mg Lisinopril (Zestril) 10 mg PO DAILY ARMANI PRN Reason: Protocol Last Admin: 07/01/18 10:07 Dose: 10 mg Metoprolol Tartrate (Lopressor) 50 mg PO 0800 ARMANI PRN Reason: Protocol Last Admin: 07/01/18 08:29 Dose: 50 mg Oxybutynin Chloride (Ditropan Tab) 5 mg PO DAILY ARMANI PRN Reason: Protocol Last Admin: 07/01/18 10:07 Dose: 5 mg - Constitutional Appears: Chronically Ill - Head Exam Head Exam: NORMAL INSPECTION - ENT Exam ENT Exam: Mucous Membranes Moist - Neck Exam Neck Exam: absent: Meningismus - Respiratory Exam Respiratory Exam: Decreased Breath Sounds - Cardiovascular Exam Cardiovascular Exam: +S1, +S2 - GI/Abdominal Exam GI & Abdominal Exam: Soft. absent: Tenderness Assessment and Plan - Assessment and Plan (Free Text) Plan: Assessment S/P Right breast cellulitis atrial fibrillation overactive bladder osteoarthritis chronic CHF osteoporosis history of right breast cancer Plan continue to monitor clinically off antibiotics since she is at risk for nosocomial infections
--- NOTE | 2018-07-02 08:30 | PN ---
Copied To: César Lemon MD Attending MD: César Lemon MD DATE: 07/02/2018 LOCATION: The patient is in [facility] Transitional Care Unit, room 303, bed 1. SUBJECTIVE: The patient was admitted with cellulitis involving the right chest wall. The patient has history of past hypertension, hyperlipidemia, cerebral hemorrhage, atrial fibrillation. The patient has asthma, dementia. The patient is seen this morning. She is comfortable. She continue with her medications. The antibiotic has been discontinued. Physical therapy is continued. PHYSICAL EXAMINATION: VITAL SIGNS: The patient's heart rate was 45 per minute today. The patient's blood pressure 109/60, respirations 20. HEENT: The patient's head is normocephalic. The patient has scar from the previous surgical incision of the scalp because of the cerebral hemorrhage. The patient had trephining. NECK: Supple. The thyroid is not enlarged. The JVP is flat. HEART: Atrial fibrillation with moderate ventricular response. ABDOMEN: Soft. Liver and spleen not palpable. LOAN COORDINATOR: No focal deficits at this time, though the patient has some minor speech difficulty. ASSESSMENT AND PLAN: The patient's clinical condition is improving. She is doing her physical therapy and is improving with that. We will continue care per rehabilitation. Discharge planning as to set a date of 07/05/2018 as discharge date. The patient will continue current management in the [facility] Subacute Rehab Unit. César Lemon MD
--- NOTE | 2018-07-02 10:31 | PN ---
Copied To: Alexis Smith MD Attending MD: Alexis Smith MD DATE: 07/02/2018 SUBJECTIVE: The patient is in bed, in no acute distress. PHYSICAL EXAMINATION: VITAL SIGNS: Temperature is 97, blood pressure is 160/70, respiratory rate of 20, heart rate of 45. HEENT: Unremarkable. NECK: Supple. LUNGS: Have decreased breath sounds. HEART: Normal S1, S2. ABDOMEN: Soft, nontender. LABORATORY DATA: Laboratory examination reveals the patient's labs are reviewed. Review of orders reveals the patient is off of antibiotics. ASSESSMENT AND PLAN: An 88-year-old female who was seen early this morning in room 303, admitted with right breast cellulitis which has now resolved. The patient with atrial fibrillation, overactive bladder, osteoarthritis, chronic congestive heart failure, and history of right breast cancer, currently has completed the antibiotics, the breast is resolved. The patient is at risk for developing nosocomial infections. Alexis Smith MD
[2018-07-02] MEDS: diltiaZEM 180 mg/24 Hours CD Cap PO SCH (10:55)
[2018-07-03] MEDS: diltiaZEM 180 mg/24 Hours CD Cap PO SCH (10:07)
--- NOTE | 2018-07-03 12:38 | PN ---
Copied To: Alexis Smith MD Attending MD: Alexis Smith MD DATE: 07/03/2018 SUBJECTIVE: The patient is in bed, in no acute distress, nontoxic. PHYSICAL EXAMINATION: VITAL SIGNS: Temperature is 97, blood pressure is 120/70, respiratory rate of 16. HEENT: Unremarkable. NECK: Supple. LUNGS: Have decreased breath sounds. HEART: Normal S1, S2. ABDOMINAL: Soft, nontender. LABORATORY EXAMINATION: Reviewed. ASSESSMENT AND PLAN: An 88-year-old female seen earlier this morning with right breast cellulitis, which is completely resolved, history of atrial fibrillation, overactive urinary bladder, osteoarthritis, chronic congestive heart failure, history of right breast cancer, currently now off of antibiotics, afebrile. The patient is at risk for developing nosocomial infections. Alexis Smith MD : 07/03/2018 10:51:54
--- NOTE | 2018-07-03 14:47 | PN ---
Copied To: César Lemon MD Attending MD: César Lemon MD DATE: 07/03/2018 SUBJECTIVE: The patient is in [facility] Transitional Care Unit, room 303, bed 1. Patient was admitted to the transitional care unit for antibiotic treatment for cellulitis. Patient was also getting physical therapy for unsteady gait and weakness. PHYSICAL EXAMINATION: VITAL SIGNS: This morning, the pulse is 50, blood pressure 103/54. We will do EKG to assess the heart rate. Patient has atrial fibrillation. LUNGS: Clear. HEART: The heart rhythm is atrial fibrillation. DIRECT SUPPORT STAFF: Patient has no focal deficit, but had general weakness. Patient has past history of craniotomy plus cerebral hemorrhage. Patient also has history of hypertension, atherosclerotic heart disease. She has had history of lumpectomy plus cancer in the right side of the breast. She has cellulitis of the right chest area involving the breast area. The infection has almost totally resolved, but antibiotic has been discontinued at this time. Patient's medications consist of Cardizem 90 mg daily. Patient is on Ditropan for incontinence of urine, Lasix 20 mg daily, metoprolol 50 mg daily, and lisinopril 10 mg daily. The patient's prognosis is good at this time. Condition is stable. Patient will follow up with physical therapy. Her discharge plan is for Wednesday, coming on the . César Lemon MD
--- NOTE | 2018-07-04 06:48 | CARD ---
APPROVED REPORT Date of service: 07/03/2018 EKG Measurement Heart [id number] <Conclusion> Atrial fibrillation Abnormal ECG
[2018-07-04] MEDS: diltiaZEM 180 mg/24 Hours CD Cap PO SCH (09:44)
--- NOTE | 2018-07-04 13:26 | PN ---
Copied To: César Lemon MD Attending MD: César Lemon MD DATE: 07/04/2018 LOCATION: The patient is in Transitional Care Unit, room 303, bed 1. SUBJECTIVE: She is an 88-year-old female. She was admitted with infection of the chest wall. It was a large area of cellulitis. Patient has a past history of hypertension, coronary artery disease, cerebrovascular disease, cerebral hemorrhage. Patient has a history of breast tumor removed from the right breast from the medial aspect of breast. There is a scar with dimple in that area, but palpation on the breast does not show any masses at this time. Patient is not ready for mammogram type test because of the sensitive nature of the infection in that area. PHYSICAL EXAMINATION: VITAL SIGNS: Patient's vital signs this morning, patient's pulse is 81, blood pressure is 115/70, respirations are 16, O2 sat 99% on room air. Patient's temperature 97.7 as mentioned. LUNGS: Clear. HEART: Normal sinus rhythm. ABDOMEN: Soft. Liver and spleen not palpable. CENTRAL NERVOUS SYSTEM: No focal deficit at this time. The patient has some unstable gait and weakness. CHEST: The chest wall area where the infection was, is more or less 99% clear. The axilla is also clear. No lymphadenopathy is noted now. Is not able to palpate any lymph nodes in the axilla. MEDICATIONS: Patient is on Cardizem 180 mg daily. Patient is on Ditropan 5 mg daily, Lasix 20 mg daily, metoprolol 50 mg daily, lisinopril 10 mg daily. The patient is on a heart-healthy 2 g sodium diet. ASSESSMENT AND PLAN: We will continue current management. The patient is to be discharged from the [facility] tomorrow. We will make further medications. The sister is the responsible republican, she will be notified and we will follow up. Patient will be seen at home, cannot get back to the office due to some disabilities that she has. We will go and see the patient on a regular basis to maintain health. César Lemon MD
--- NOTE | 2018-07-04 14:15 | CP.PCM.PN ---
Subjective - Date & Time of Evaluation Date of Evaluation: 07/04/18 Time of Evaluation: 12:30 - Subjective Subjective: No fevers, not in distress, no leg pain, doing her physical rehab very well, no diarrhea, no nausea. Objective - Vital Signs/Intake and Output Vital Signs (last 24 hours): Temp Pulse Resp BP Pulse Ox 97.7 F 96 H 16 135/69 99 07/03/18 16:00 07/04/18 09:45 07/03/18 16:00 07/04/18 09:45 07/03/18 16:00 - Medications Medications: Current Medications Diltiazem HCl (Cardizem Cd) 180 mg PO DAILY ARMANI PRN Reason: Protocol Last Admin: 07/04/18 09:44 Dose: 180 mg Furosemide (Lasix) 20 mg PO DAILY ARMANI PRN Reason: Protocol Last Admin: 07/04/18 09:45 Dose: 20 mg Lisinopril (Zestril) 10 mg PO DAILY ARMANI PRN Reason: Protocol Last Admin: 07/04/18 09:45 Dose: 10 mg Metoprolol Tartrate (Lopressor) 50 mg PO 0800 ARMANI PRN Reason: Protocol Last Admin: 07/04/18 08:00 Dose: 50 mg Oxybutynin Chloride (Ditropan Tab) 5 mg PO DAILY ARMANI PRN Reason: Protocol Last Admin: 07/04/18 09:45 Dose: 5 mg - Constitutional Appears: Non-toxic, Chronically Ill - Head Exam Head Exam: NORMAL INSPECTION - Respiratory Exam Respiratory Exam: Decreased Breath Sounds - Cardiovascular Exam Cardiovascular Exam: +S1, +S2 - GI/Abdominal Exam GI & Abdominal Exam: Soft. absent: Tenderness Assessment and Plan - Assessment and Plan (Free Text) Plan: Assessment S/P Right breast cellulitis atrial fibrillation overactive bladder osteoarthritis chronic CHF osteoporosis history of right breast cancer Plan continue to monitor clinically off antibiotics since she is at risk for hospital -acquired infections
[2018-07-05 08:46] VITALS: PULSE 81; RESP 18; TEMP 97.6; O2SAT 99
[2018-07-05] MEDS: diltiaZEM 180 mg/24 Hours CD Cap PO SCH (10:39)
[2018-07-05 10:41] VITALS: BP 120/57; PULSE 90
--- NOTE | 2018-07-05 11:09 | PN ---
DATE: 07/05/2018 SUBJECTIVE: The patient is an 88-year-old white female. She is in the Transitional Care Unit getting rehabilitation and deconditioning. The patient was admitted initially for severe cellulitis of the chest wall on the right side. The patient has past history of hypertension, cerebral hemorrhage. The patient also has a history of atrial fibrillation. PHYSICAL EXAMINATION: VITAL SIGNS: This morning, the pulse is 47, blood pressure 110/56. The patient's temperature 97.9, O2 sat is 98% on room air. HEENT: The patient's head is normocephalic except the patient has past scar from trephining for cerebral hemorrhage. NECK: The thyroid is not enlarged. The JVP is flat. Carotid pulses are present. LUNGS: Clear. HEART: Rhythm is atrial fibrillation with moderate low ventricular response. RECORD SEARCHER: There are no focal deficits noted at this time. The patient is cleared for discharge and medications will be continued at home. She will be on Cardizem, Ditropan, Lasix, metoprolol and lisinopril. A 2 gram sodium diet. The patient's EKG done on 07/03/2018, the heart rate is 85. According to the EKG, the patient's heart rate depicted on the daily chart is bradycardic rate, but I think this is because the patient's heart rate that was marked was taken by manual means, people sometimes miss the heartbeat in atrial fibrillation and that is why there is difference between the EKG findings and the patient's physical examination findings. We will keep an eye on that. We will follow up and see the patient next week in her home. César Lemon MD
--- NOTE | 2018-07-05 19:11 | CP.PCM.PN ---
Subjective - Date & Time of Evaluation Date of Evaluation: 07/05/18 Time of Evaluation: 10:45 - Subjective Subjective: No fevers, not in distress, no breast pain. Objective - Vital Signs/Intake and Output Vital Signs (last 24 hours): Temp Pulse Resp BP Pulse Ox 97.6 F 81 18 137/72 99 07/05/18 06:00 07/05/18 08:26 07/05/18 06:00 07/05/18 08:26 07/05/18 06:00 - Medications Medications: Current Medications Diltiazem HCl (Cardizem Cd) 180 mg PO DAILY ARMANI PRN Reason: Protocol Last Admin: 07/04/18 09:44 Dose: 180 mg Furosemide (Lasix) 20 mg PO DAILY ARMANI PRN Reason: Protocol Last Admin: 07/04/18 09:45 Dose: 20 mg Lisinopril (Zestril) 10 mg PO DAILY ARMANI PRN Reason: Protocol Last Admin: 07/04/18 09:45 Dose: 10 mg Metoprolol Tartrate (Lopressor) 50 mg PO 0800 ARMANI PRN Reason: Protocol Last Admin: 07/05/18 08:26 Dose: 50 mg Oxybutynin Chloride (Ditropan Tab) 5 mg PO DAILY ARMANI PRN Reason: Protocol Last Admin: 07/04/18 09:45 Dose: 5 mg - Constitutional Appears: Chronically Ill - Head Exam Head Exam: NORMAL INSPECTION - Respiratory Exam Respiratory Exam: Decreased Breath Sounds - Cardiovascular Exam Cardiovascular Exam: +S1, +S2 - GI/Abdominal Exam GI & Abdominal Exam: Soft. absent: Tenderness Assessment and Plan - Assessment and Plan (Free Text) Plan: Assessment S/P Right breast cellulitis atrial fibrillation overactive bladder osteoarthritis chronic CHF osteoporosis history of right breast cancer Plan continue to monitor clinically off antibiotics since she is at risk for healthcare-associated infections
== END 2018-07-05 12:47 | disposition home health service (06) | DRG 945 ==
LOC: TRCU 14:22
PROVIDERS: ADMIT Internal Medicine; ATTEND Internal Medicine
PROC: F07Z9FZ Gait Training/Functional Ambulation Treatment using Assistive, Adaptive, Supportive or Protective Equipment (ICD-10-PCS; principal; 2018-06-27)
PROC: F08Z4FZ Home Management Treatment using Assistive, Adaptive, Supportive or Protective Equipment (ICD-10-PCS; 2018-06-28)
DX: R53.1 Weakness (principal); A41.9 Sepsis, unspecified organism; N61.0 Mastitis without abscess; L03.313 Cellulitis of chest wall; Z79.2 Long term (current) use of antibiotics; N32.81 Overactive bladder; R26.81 Unsteadiness on feet; I48.2 Chronic atrial fibrillation; I50.9 Heart failure, unspecified; I11.0 Hypertensive heart disease with heart failure; F03.90 Unspecified dementia, unspecified severity, without behavioral disturbance, psychotic disturbance, mood disturbance, and anxiety; I25.10 Atherosclerotic heart disease of native coronary artery without angina pectoris; E78.5 Hyperlipidemia, unspecified; M81.0 Age-related osteoporosis without current pathological fracture; J45.909 Unspecified asthma, uncomplicated; Z85.3 Personal history of malignant neoplasm of breast